=== PATIENT | female | born 2000 | race Caucasian/White ===

== ENCOUNTER 2022-01-28 13:02 | Emergency (ER) | payer OTHER ==
[~2022-01-28] VITALS: Ht 157.5 cm; Wt 81.3 kg
[2022-01-28] MEDS ORDERED: LEXA1TAB PO (13:10)
[2022-01-28] MEDS ORDERED: HYDR-643 PO (13:10)
[2022-01-28] MEDS ORDERED: QUET1TAB17 PO (13:10)
[2022-01-28 14:18] LABS: BASO # 0.1 10^3/uL (0.0-0.2); BASO % 0.6 % (0.0-1.0); EOS # 0.2 10^3/uL (0.0-0.5); EOS % 1.5 % (0.0-3.0); HEMATOCRIT 40.3 % (36.0-47.0); HEMOGLOBIN 13.1 g/dl (12.0-15.5); LYMPH # 3.1 10^3/uL (1.5-5.0); LYMPH % 31.2 % (24.0-44.0); MEAN CORPUSCULAR HGB CONC 32.5 g/dl (32.0-36.5); MEAN CORPUSCULAR VOLUME 89.2 fl (80.0-96.0); MONO # 0.8 10^3/uL (0.0-0.8); NEUTROPHILS # 5.8 10^3/uL (1.5-8.5); NEUTROPHILS % 58.3 % (36.0-66.0); PLATELET COUNT, AUTOMATED 372 10^3/uL (150-450); RED BLOOD COUNT 4.52 10^6/uL (4.00-5.40); WHITE BLOOD COUNT 9.9 10^3/uL (4.0-10.0)
[2022-01-28 15:03] LABS: HCG, SERUM QUALITATIVE NEGATIVE (NEGATIVE)
[2022-01-28 15:13] LABS: ALBUMIN 3.6 GM/DL (3.2-5.2); ALT/SGPT 20 U/L (12-78); BILIRUBIN,DIRECT < 0.1 MG/DL (0.0-0.2); BILIRUBIN,TOTAL 0.1 MG/DL (0.2-1.0); BLOOD UREA NITROGEN 12 MG/DL (7-18); CALCIUM LEVEL 9.8 MG/DL (8.5-10.1); CARBON DIOXIDE LEVEL 25 MEQ/L (21-32); CHLORIDE LEVEL 108 MEQ/L (98-107); CREATININE FOR GFR 0.55 MG/DL (0.55-1.30); GLUCOSE, FASTING 79 MG/DL (70-100); LIPASE 120 U/L (73-393); POTASSIUM SERUM 4.5 MEQ/L (3.5-5.1); SODIUM LEVEL 139 MEQ/L (136-145); TOTAL PROTEIN 7.7 GM/DL (6.4-8.2)
[2022-01-28] MEDS ORDERED: ISOVUE-370 76% 100ML VIAL As Ordered ONE (16:19)
[2022-01-28 18:18] LABS: GC DNA AMPLIFICATION NEGATIVE (NEGATIVE)
[2022-01-28 19:15] VITALS: BP 120/76
== END 2022-01-28 19:20 | disposition home or self-care (01) ==
LOC: M ED 13:02
DX: R10.31 Right lower quadrant pain (principal); R11.2 Nausea with vomiting, unspecified; G40.909 Epilepsy, unspecified, not intractable, without status epilepticus; F31.9 Bipolar disorder, unspecified; Z88.8 Allergy status to other drugs, medicaments and biological substances; F17.200 Nicotine dependence, unspecified, uncomplicated; Z79.899 Other long term (current) drug therapy
CPT/HCPCS: 36415; 74177; 76856; 80048; 80076; 81002; 83690; 84703; 85025; 87210; 87810; 87850; 99284; Q9967

== ENCOUNTER 2022-07-01 09:35 | Emergency (ER) | payer OTHER ==
[~2022-07-01] VITALS: Ht 157.5 cm; Wt 90.7 kg
[~2022-07-01 09:35] MED LIST: HYDR-643 PO; LEXA1TAB PO; QUET1TAB17 PO
[2022-07-01] MEDS ORDERED: JUNE1.5T (09:47)
[2022-07-01] MEDS ORDERED: LEVE500T5 (09:47)
[2022-07-01] MEDS ORDERED: ACETAMINOPHEN 500 MG TAB PO ONE (10:25)
[2022-07-01] MEDS ORDERED: ONDANSETRON 4MG ORAL DISINTEGRATING TAB PO ONE (10:25)
[2022-07-01] MEDS ORDERED: ONDA4TAB6 PO (10:53)
[2022-07-01 11:03] VITALS: BP 124/69
== END 2022-07-01 11:03 | disposition home or self-care (01) ==
LOC: M ED 09:35
DX: S06.0X0A Concussion without loss of consciousness, initial encounter (principal); W06.XXXA Fall from bed, initial encounter; Y92.003 Bedroom of unspecified non-institutional (private) residence as the place of occurrence of the external cause; Y93.89 Activity, other specified; Y99.8 Other external cause status; R56.9 Unspecified convulsions; F17.200 Nicotine dependence, unspecified, uncomplicated; Z88.8 Allergy status to other drugs, medicaments and biological substances; Z79.899 Other long term (current) drug therapy

== ENCOUNTER 2023-07-30 07:54 | Emergency (ER) | payer OTHER ==
[~2023-07-30] VITALS: Ht 154.9 cm; Wt 68.9 kg
[~2023-07-30 07:54] MED LIST changes: +JUNE1.5T; +LEVE500T5; +ONDA4TAB6 PO
[2023-07-30 09:30] VITALS: BP 107/73; TEMP 97.4; O2SAT 98
[2023-07-30] MEDS ORDERED: VENTAER INH (09:56)
[2023-07-30] MEDS ORDERED: BENZ200C70 PO (09:56)
== END 2023-07-30 10:00 | disposition home or self-care (01) ==
LOC: M ED 07:54
DX: R05.9 Cough, unspecified (principal); B34.8 Other viral infections of unspecified site; F17.210 Nicotine dependence, cigarettes, uncomplicated; Z88.8 Allergy status to other drugs, medicaments and biological substances; Z79.51 Long term (current) use of inhaled steroids; Z79.899 Other long term (current) drug therapy